=== PATIENT | male | born 2000 | race Caucasian/White ===

== ENCOUNTER 2024-10-02 11:45 | Emergency (ER) | payer MEDICAID ==
[~2024-10-02] VITALS: Ht 170.2 cm; Wt 77.1 kg
[2024-10-02] MEDS ORDERED: AMOX-430 PO (12:37)
[2024-10-02] MEDS ORDERED: HYDR-4209 PO (12:37)
[2024-10-02 12:54] VITALS: BP 128/70; TEMP 98.1; O2SAT 97
== END 2024-10-02 12:55 | disposition home or self-care (01) ==
LOC: ER 11:45
DX: K02.9 Dental caries, unspecified (principal); K04.7 Periapical abscess without sinus

== ENCOUNTER 2024-12-13 13:29 | Emergency (ER) | payer MEDICAID ==
[~2024-12-13] VITALS: Ht 170.2 cm; Wt 74.8 kg
[~2024-12-13 13:29] MED LIST: AMOX-430 PO; HYDR-4209 PO
[2024-12-13 14:01] VITALS: BP 132/76; TEMP 98.6; O2SAT 97
[2024-12-13] MEDS ORDERED: HYDR-4275 PO (14:28)
[2024-12-13] MEDS ORDERED: AMOX-430 PO (14:28)
== END 2024-12-13 15:10 | disposition home or self-care (01) ==
LOC: ER 13:32
DX: K04.7 Periapical abscess without sinus (principal); K02.9 Dental caries, unspecified; Z79.01 Long term (current) use of anticoagulants; Z85.6 Personal history of leukemia; Z86.718 Personal history of other venous thrombosis and embolism